=== PATIENT | female | born 1935 | race Two or more races ===

== ENCOUNTER 2019-08-15 11:27 | Inpatient (IN) | payer MEDICARE, OTHER ==
[~2019-08-15] VITALS: Ht 162.6 cm; Wt 68.7 kg
--- NOTE | 2019-08-15 11:41 | NUR ---
[facility] AA[facility], LETHARGIC - RESPONSIVE TO VERBAL STIMULI. NOT IN RESP DISTRESS, BREATHING EVEN AND UNLABORED. ERNESTINE IN FOR ALTERED MENTAL STATUS THAT NORMAL. PT REPORTS UPON ASSESSMENT THAT SHE FEELS BAD BECAUSE HER CHEST HURTS AND POINTED AT HER MID CHEST. PT REPORTS PAIN 8/10. PT STATES THAT PAIN IS ALREADY 4 HOURS. PT IS AFEBRILE. DENIES COUGH. PLACED ON MONITOR. MD WAS AT BEDSIDE FOR EVAL. ORDERS RECEIVED, NOTED AND CARRIED OUT.
--- NOTE | 2019-08-15 11:53 | NUR ---
BRENNA LEON (DAUGHTER) [phone].
[2019-08-15 12:10] LABS: BASOPHILS # (AUTO) 0.1 /CMM (0.0-0.2); BASOPHILS % (AUTO) 0.8 % (0.0-2.0); EOSINOPHILS % (AUTO) 2.6 % (0.0-6.0); HEMATOCRIT 36 % (33-45); HEMOGLOBIN 12.2 g/dL (11.5-14.8); LYMPHOCYTES # (AUTO) 1.6 /CMM (0.8-4.8); LYMPHOCYTES % (AUTO) 20.2 % (20.0-44.0); MEAN CORPUSCULAR HGB CONC 34 g/dl (31.0-36.0); MEAN CORPUSCULAR VOLUME 97 fL (82-100); MONOCYTES # (AUTO) 0.9 /CMM (0.1-1.30); MONOCYTES % (AUTO) 10.5 % (2.0-12.0); NEUTROPHILS # (AUTO) 5.4 /CMM (1.8-8.9); NEUTROPHILS % (AUTO) 65.9 % (43.0-81.0); PLATELET COUNT (AUTO) 266 /CMM (150-450); WHITE BLOOD COUNT (AUTO) 8.1 K/uL (4.3-11.0)
[2019-08-15 12:17] LABS: CALCIUM, SERUM 8.4 mg/dL (8.5-10.1); CARBON DIOXIDE 20 mmol/L (21-32); CHLORIDE 101 mmol/L (98-107); CREATININE 1.2 mg/dL (0.6-1.3); GLUCOSE 108 mg/dL (74-106); POTASSIUM 3.6 mmol/L (3.5-5.1); SODIUM SERUM 135 mmol/L (136-145); UREA NITROGEN, BLOOD 12 mg/dL (7-18)
--- NOTE | 2019-08-15 12:19 | NUR ---
IV LINE OBTAIEND ON L AC 20G, BLOOD DRAWN AND GIVEN TO RETAIL HELPER. URINE COLLECTED VIA IN AND OUT WITH STRICT STERILE TECHNIQUE. COVID SWAB DONE. PT WAS CLEAN, PT HAD BM.
[2019-08-15 12:23] LABS: APPEARANCE,URINE Clear (CLEAR); BILIRUBIN,URINE Negative (NEGATIVE); BLOOD, URINE Negative Ery/uL (NEGATIVE); COLOR,URINE Yellow (YELLOW); KETONES,URINE Negative (NEGATIVE); NITRITE, URINE Negative (NEGATIVE); PROTEIN,URINE Negative (NEGATIVE); UGLUCOSE Negative (NEGATIVE); UROBILINOGEN,URINE 0.2 EU/dL (0.2)
[2019-08-15 12:30] LABS: ALANINE AMINOTRANSFERASE 15 U/L (12-78); ALBUMIN 3.7 g/dL (3.4-5.0); ALKALINE PHOSPHATASE 51 U/L (46-116); ASPARTATE AMINOTRANSFERASE 12 U/L (15-37); B-TYPE NATRIURETIC PEPTIDE 179 PG/ML (0-125); BILIRUBIN,DIRECT 0.1 mg/dL (0.0-0.2); BILIRUBIN,TOTAL 0.4 mg/dL (0.2-1.0); TOTAL PROTEIN, SERUM 7.3 g/dL (6.4-8.2)
[2019-08-15 12:39] LABS: CREATINE KINASE, TOTAL 45 U/L (26-192); FERRITIN 91 ng/mL (8-388)
[2019-08-15 12:40] LABS: C-REACTIVE PROTEIN 1.4 mg/dL (0.0-0.9)
[2019-08-15 12:48] LABS: D-DIMER 0.38 mg/L(FEU (0.17-0.50)
[2019-08-15] MEDS ORDERED: ASPIRIN 325 MG TABLET ONE (12:59)
[2019-08-15] MEDS ORDERED: ASPIRIN 325 MG TABLET PO ONE (13:00)
[2019-08-15 13:01] LABS: LEUKOCYTE ESTERASE ,URINE NEGATIVE (NEGATIVE)
--- NOTE | 2019-08-15 13:13 | NUR ---
CALLED FOR TELE ISOLATION BED
--- NOTE | 2019-08-15 13:44 | NUR ---
NURSING SUP GAVE TELE BED 114-1.
[2019-08-15] MEDS ORDERED: HYDROCODONE/APAP 5/325MG 1 EACH TABLET PO PRN (14:00)
[2019-08-15] MEDS ORDERED: ONDANSETRON HCL/PF 4 MG/2 ML VIAL IVP PRN (14:00)
[2019-08-15] MEDS ORDERED: Z GUARD REMEDY 2 OZ OINT TP PRN (14:00)
[2019-08-15] MEDS ORDERED: MAGNESIUM HYDROXIDE 30 ML UDC PO PRN (14:00)
[2019-08-15] MEDS ORDERED: CEFTRIAXONE 1GM BAG (ER ONLY) 1 GM/50 ML PIGGYBACK IV ONE (14:00)
[2019-08-15] MEDS ORDERED: MAG HYDROX/AL HYDROX/SIMETH 30 ML UDC PO PRN (14:00)
--- NOTE | 2019-08-15 14:01 | NUR ---
REPORT GIVEN TO AZIZA RODRIGES FOR MARLON.
--- NOTE | 2019-08-15 14:18 | NUR ---
PT TRANSPORTED TO UNIT ON GURNEY WITH EMT AND RN AT BEDSIDE W/ ACLS PROTOCOL. NAD NOTE DURING TRANSPORT.
[2019-08-15 14:30] VITALS: BP 89/56
--- NOTE | 2019-08-15 14:30 | NUR ---
TELE/RN NOTE THE PATIENT IS RECEIVED MONIKA RICHEY FROM ER. THE PATIENT IS TRANSFERRED TO BED. PATIENT ALERT AND ORIENTED X1. ABLE TO MAKE NEEDS KNOWN VERBALLY. PATIENT IS ADMITTED FROM [facility] WITH DX OF ALOC. DENIES PAIN. AT THIS TIME. IN ROOM AIR AND DENIES SOB. RESPIRATION REGULAR AND UNLABORED. PATIENT IS IN N APPARENT DISTRESS. LAC G 20 PATENT AND SALINE LOCKED. EXTERNAL TELE BOX IS ATTACHED AND READING IS SR 63. PATIENT IS GIVEN INSTRUCTION AND ORIENTATION ABOUT THE ROOM/FLOOR. BED LOW AND LOCKED. SIDE RAILS UP X3. CALL LIGHT WITHIN REACH. WILL CONTINUE TO MONITOR.
[2019-08-15] MEDS: ENOXAPARIN SODIUM 40 MG/0.4 ML DISP.SYRIN SQ SCH (15:00)
[2019-08-15] MEDS: IV NS 0.9% 1,000 ML IV PRN (15:01)
[2019-08-15 15:20] VITALS: BP 104/57
--- NOTE | 2019-08-15 15:24 | NUR ---
TELE/RN NOTE STILL WAITING FOR PHARMACY TO SEND ROCEPHIN 1 GM DUE AT 1400. FOLLOW UP ISIDRA IS MADE. WILL CONTINUE TO FOLLOW UP UNTIL IT GETS DELIVERED.
--- NOTE | 2019-08-15 15:49 | NUR ---
TELE/RN NOTE RECEIVED CALL FROM BAILEY BARKER) STATING THAT ROCEPHIN 1 GM DUE AT 1400 WILL NOT BE SENT BECAUSE IT WAS ORDERED BY ER DOCTOR AND NOT BY ADMITTING DR CRAWFORD DESPITE THAT THE MEDICATION WAS NOT GIVEN IN THE ER. PAGED DR CRAWFORD TO FIND OUT IF HE STILL WANTS THE MEDICATION TO BE GIVEN. WAITING FOR REPLY.
--- NOTE | 2019-08-15 15:56 | NUR ---
TELE/RN NOTE RECEIVED ORDER FROM DR GUIDO FOR ROCEPHIN 1 G IV ONE TIME. NOTED AND CARRIED OUT.
--- NOTE | 2019-08-15 15:57 | NUR ---
TELE/RN NOTE ROCEPHIN 1 GM IV DUE AT 1400 WAS NOT GIVEN, HOWEVER, INSTEAD DR GUIDO GAVE A NEW ORDER FOR ROCEPHIN 1 G IV TO BE GIVEN AT 1700 (ONE TIME ORDER).
[2019-08-15] MEDS ORDERED: CEFTRIAXONE 1 G in IV D5W 50 ML IV ONE (17:00)
--- NOTE | 2019-08-15 18:31 | NUR ---
TELE/RN NOTE THE PATIENT IS ALERT AND ORIENTED X1. IN ROOM AIR AND SATURATION IS AT 98%. DENIES SOB. RESPIRATION REGULAR AND UNLABORED. DENIES PAIN. THE PATIENT IS IN NO APPARENT DISTRESS. EXTERNAL TELE BOX READING IS SR 78. LAC G 20 PATENT AND NS INFUSING AT 100ML/HR AND NO S/S INFILTRATION NOTED. BED LOW AND LOCKED. SIDE RAILS UP X3. CALL LIGHT WITHIN REACH. WILL ENDORSE TO HOSPITAL MORTICIAN.
[2019-08-15 20:00] VITALS: BP 138/73
[2019-08-16] VITALS: BP 119/65
[2019-08-16 04:00] VITALS: BP 118/71
[2019-08-16] MEDS: IV NS 0.9% 1,000 ML IV PRN ×2 (04:31→16:17)
[2019-08-16 06:15] LABS: BASOPHILS % (AUTO) 0.3 % (0.0-2.0); EOSINOPHILS % (AUTO) 2.3 % (0.0-6.0); HEMATOCRIT 34 % (33-45); HEMOGLOBIN 11.7 g/dL (11.5-14.8); LYMPHOCYTES # (AUTO) 1.8 /CMM (0.8-4.8); LYMPHOCYTES % (AUTO) 20.5 % (20.0-44.0); MEAN CORPUSCULAR HGB CONC 35 g/dl (31.0-36.0); MEAN CORPUSCULAR VOLUME 97 fL (82-100); MONOCYTES # (AUTO) 0.8 /CMM (0.1-1.30); MONOCYTES % (AUTO) 9.8 % (2.0-12.0); NEUTROPHILS # (AUTO) 5.8 /CMM (1.8-8.9); NEUTROPHILS % (AUTO) 67.1 % (43.0-81.0); PLATELET COUNT (AUTO) 270 /CMM (150-450); RED BLOOD CELL COUNT(AUTO) 3.52 MIL/uL (4.0-5.2); WHITE BLOOD COUNT (AUTO) 8.6 K/uL (4.3-11.0)
[2019-08-16 06:37] LABS: ALBUMIN 3.6 g/dL (3.4-5.0); BILIRUBIN,TOTAL 0.3 mg/dL (0.2-1.0); CALCIUM, SERUM 8.3 mg/dL (8.5-10.1); CREATININE 0.7 mg/dL (0.6-1.3); MAGNESIUM 1.3 mg/dL (1.8-2.4); PHOSPHORUS 2.9 mg/dL (2.5-4.9); POTASSIUM 3.4 mmol/L (3.5-5.1); TOTAL PROTEIN, SERUM 6.9 g/dL (6.4-8.2)
--- NOTE | 2019-08-16 07:37 | NUR ---
BORING MILL SET UP OPERATOR NOTES RECEIVED PATIENT IN BED, ASLEEP. AROUSABLE TO VERBAL AND TACTILE STIMULI. ON ROOM AIR WITH SPO2 OF 99%. NO SOB. DENIES ANY C/O PAIN NOR DISCOMFORT AT THIS TIME.LAC # 20 INTACT AND PATENT INFUSING NS @ 100ML/HR RAGHAV WELL. ON TELE MONITORING SR: 77. BED IN LOWEST POSITION, LOCKED. BED ALARM ON. CALL LIGHT WITHIN REACH.
[2019-08-16 08:00] VITALS: BP 140/68
[2019-08-16] MEDS ORDERED: POTASSIUM CHLORIDE 20 MEQ TAB.PRT.SR PO SCH (08:00)
[2019-08-16] MEDS: Magnesium 1GM/D5W 100ML PREMIX 100 ML IV SCH ×2 (08:18→09:37)
[2019-08-16] MEDS: ENOXAPARIN SODIUM 40 MG/0.4 ML DISP.SYRIN SQ SCH (08:19)
[2019-08-16] MEDS: ASPIRIN 81 MG TAB.CHEW PO SCH (08:19)
[2019-08-16 08:23] LABS: IRON, SERUM 53 ug/dl (50-175); TOTAL IRON BINDING CAPACITY 290 ug/dl (250-450)
--- NOTE | 2019-08-16 09:13 | NUR ---
WOUND CARE CONSULT: REVIEWED CHART, PHOTO DOCUMENTATION AND NURSING NOTES. PER PHOTO THERE ARE SURGICAL SCARS TO BILATERAL KNEES, PRESENT ON ADMISSION. RECOMMENDATIONS MADE FOR SKIN PROTECTION. DISCUSSED WITH NURSING STAFF. MD IN AGREEMENT WITH PLAN OF CARE. CURRENT NETO SCORE IS 15.
[2019-08-16 09:24] LABS: THYROID STIMULATING HORMONE 131.276 uIU/mL (0.358-3.74)
[2019-08-16] MEDS: LEVOTHYROXINE SODIUM 100 MCG TABLET PO SCH (11:02)
[2019-08-16 12:00] VITALS: BP 133/69
[2019-08-16 16:00] VITALS: BP 138/67
--- NOTE | 2019-08-16 18:42 | NUR ---
TRUCK ASSEMBLER NOTES PATIENT RESTING COMFORTABLY IN BED WATCHING TV. ALERT AND ORIENTED X2. VERBALLY RESPONSIVE. NO S/S OF RESPIRATORY DISTRESS. DENIES ANY C/O PAIN NOR DISCOMFORT AT THIS TIME. DENIES ANY C/O CHEST PAIN DURING THE SHIFT. NOTED INCREASE ALERTNESS SINCE RECEIVING PATIENT THIS AM. LAC # 20 INTACT AND PATENT INFUSING NS @ 100ML/HR RAGHAV WELL. BED IN LOWEST POSITION, LOCKED. BED ALARM ON. CALL LIGHT WITHIN REACH. IN NO APPARENT DISTRESS.
--- NOTE | 2019-08-16 19:30 | NUR ---
SPRAY GUN SIZER NOTES RECEIVED PATIENT IN BED ALERT AWAKE ORIENTED X4 RESTING COMFORTABLY. BREATHING NORMAL NO SOB NOTED. RESPIRATION EVEN NON LABORED. TEL;E MONITOR READING SR IN 60'S. DENIES ANY PAIN OR DISCOMFORT AT THIS TIME. IV SITE INTACT PATENT FLUSHED WELL. ABD SOFT AND NON DISTENDED. SAFETY MEASURES IN PLACE, BED IN LOW AND LOCKED POSITION. CALL LIGHT WITHIN REACH. WILL CONT TO MONITOR. Addendum: 08/16/19 at 8 by SANDY CARROLL RN ERROR IN CHARTING PATIENT IS ALERT AWAKE ORIENTED X2 NOT 4.
[2019-08-16 20:00] VITALS: BP 151/73
[2019-08-16] MEDS: ACETAMINOPHEN 325 MG TABLET PO PRN (20:13)
[2019-08-17] VITALS: BP_SYST 148; BP_SYST 162; BP_DIAS 70
[2019-08-17 04:00] VITALS: BP 158/79
[2019-08-17] MEDS: IV NS 0.9% 1,000 ML IV PRN (05:06)
--- NOTE | 2019-08-17 06:16 | NUR ---
FUNCTIONAL SUPPORT ANALYST NOTES PATIENT RESTED WELL THROUGHOUT THE SHIFT. NO S/S OF ACUTE DISTRESS NOTED. VITAL SIGNS REMAINED WNL. ROUTINE MEDICATIONS WERE GIVEN ALONG WITH PRN TYLENOL TOLERATED WELL. IV SITE INTACT PATENT FLUSHED WELL. ON RA SATURATING WELL IN 97%. TELE MONITOR READING SR. SKIN INTACT WARM AND DRY TO TOUCH. KEPT CLEAN AND COMFORTABLE. SAFETY MEASURES IN PLACE, BED IN LOW AND LOCKED POSITION. CALL LIGHT WITHIN REACH. WILL ENDORSE PATIENT TO AM NURSE FOR MARLON.
[2019-08-17 07:15] LABS: BASOPHILS % (AUTO) 0.4 % (0.0-2.0); EOSINOPHILS % (AUTO) 2.2 % (0.0-6.0); HEMATOCRIT 30 % (33-45); HEMOGLOBIN 10.5 g/dL (11.5-14.8); LYMPHOCYTES # (AUTO) 1.8 /CMM (0.8-4.8); LYMPHOCYTES % (AUTO) 24.2 % (20.0-44.0); MEAN CORPUSCULAR HGB CONC 35 g/dl (31.0-36.0); MEAN CORPUSCULAR VOLUME 97 fL (82-100); MONOCYTES # (AUTO) 0.8 /CMM (0.1-1.30); MONOCYTES % (AUTO) 10.8 % (2.0-12.0); NEUTROPHILS # (AUTO) 4.7 /CMM (1.8-8.9); NEUTROPHILS % (AUTO) 62.4 % (43.0-81.0); PLATELET COUNT (AUTO) 264 /CMM (150-450); RED BLOOD CELL COUNT(AUTO) 3.14 MIL/uL (4.0-5.2); WHITE BLOOD COUNT (AUTO) 7.5 K/uL (4.3-11.0)
[2019-08-17 07:16] LABS: ALANINE AMINOTRANSFERASE 15 U/L (12-78); ALBUMIN 3.3 g/dL (3.4-5.0); ALKALINE PHOSPHATASE 48 U/L (46-116); ASPARTATE AMINOTRANSFERASE 9 U/L (15-37); BILIRUBIN,TOTAL 0.2 mg/dL (0.2-1.0); CALCIUM, SERUM 8.2 mg/dL (8.5-10.1); CARBON DIOXIDE 22 mmol/L (21-32); CHLORIDE 107 mmol/L (98-107); CREATININE 0.7 mg/dL (0.6-1.3); GLUCOSE 115 mg/dL (74-106); MAGNESIUM 1.7 mg/dL (1.8-2.4); PHOSPHORUS 2.5 mg/dL (2.5-4.9); POTASSIUM 3.5 mmol/L (3.5-5.1); SODIUM SERUM 141 mmol/L (136-145); TOTAL PROTEIN, SERUM 6.5 g/dL (6.4-8.2); UREA NITROGEN, BLOOD 8 mg/dL (7-18)
[2019-08-17 07:18] LABS: CREATINE KINASE, TOTAL 36 U/L (26-192)
--- NOTE | 2019-08-17 07:30 | NUR ---
RN NOTE: RECEIVED PATIENT IN BED THIS MORNING. PATIENT IS ALERT AND ORIENTED X3, RESPONDS APPROPRIATELY, GREENLANDIC SPEAKING. SATING WELL ON ROOM AIR, NO SIGNS OF RESPIRATORY DISTRESS NOTED. NO SIGNS OF ACUTE DISTRESS NOTED. #20 LAC, C/D/I, FLUSHES WELL, NO SIGNS OF COMPLICATIONS NOTED. SAFETY MEASURES IMPLEMENTED, BED IN LOWEST POSITION, LOCKED, SIDE RAILS UP X2, CALL LIGHT WITHIN REACH. WILL CONTINUE TO MONITOR PATIENT FOR CHANGES.
[2019-08-17 08:00] VITALS: BP 151/58
[2019-08-17] MEDS ORDERED: METF-441 PO (08:18)
[2019-08-17] MEDS ORDERED: CALC500T52 PO (08:18)
[2019-08-17] MEDS ORDERED: AMLO5TAB4 PO (08:18)
[2019-08-17] MEDS ORDERED: MAGN400O6 PO (08:18)
[2019-08-17] MEDS ORDERED: CLOP75TA15 PO (08:18)
[2019-08-17] MEDS ORDERED: AMIN30LI2 PO (08:18)
[2019-08-17] MEDS ORDERED: ACET-868 PO (08:18)
[2019-08-17] MEDS ORDERED: MEGE400O4 PO (08:18)
[2019-08-17] MEDS ORDERED: LEVO75TA7 PO (08:18)
[2019-08-17] MEDS ORDERED: ALBU18HF2 IH (08:18)
[2019-08-17] MEDS ORDERED: CYAN100020 SL (08:18)
[2019-08-17] MEDS ORDERED: FLUT16SP16 NS (08:18)
[2019-08-17] MEDS ORDERED: CARV12.52 PO (08:18)
[2019-08-17] MEDS ORDERED: RISE35TA PO (08:18)
[2019-08-17] MEDS ORDERED: MULT-447 PO (08:18)
[2019-08-17] MEDS ORDERED: CHOL100040 PO (08:18)
[2019-08-17] MEDS ORDERED: TRAM50TA2 PO (08:18)
[2019-08-17] MEDS ORDERED: INSU100V39 SQ (08:18)
[2019-08-17] MEDS ORDERED: PANT40TA2 PO (08:18)
[2019-08-17] MEDS ORDERED: PRAV40TA3 PO (08:18)
[2019-08-17] MEDS ORDERED: FERR325T23 PO (08:18)
[2019-08-17] MEDS ORDERED: PYRI25TA3 PO (08:18)
[2019-08-17] MEDS ORDERED: DILT120C87 PO (08:18)
[2019-08-17] MEDS ORDERED: DOCU-141 PO (08:18)
[2019-08-17] MEDS ORDERED: MEMA1CAP3 PO (08:18)
[2019-08-17] MEDS ORDERED: GUAI5SYR PO (08:18)
[2019-08-17] MEDS: LEVOTHYROXINE SODIUM 100 MCG TABLET PO SCH (08:19)
[2019-08-17] MEDS: ENOXAPARIN SODIUM 40 MG/0.4 ML DISP.SYRIN SQ SCH (08:20)
[2019-08-17] MEDS: ASPIRIN 81 MG TAB.CHEW PO SCH (08:21)
[2019-08-17] MEDS: ACETAMINOPHEN 325 MG TABLET PO PRN (08:45)
--- NOTE | 2019-08-17 09:38 | NUR ---
PER DR. GANNON OK TO DISCONTINUE ISOLATION ,NURSING SUP NOTIFIED AWAITS CLEAN RM IN CLEAN UNIT.
--- NOTE | 2019-08-17 09:40 | NUR ---
INFECTION CONTROL LIONEL NOTIFIED.
--- NOTE | 2019-08-17 11:05 | NUR ---
GAVE REPORT TO AZIZA SEGAL FOR CONTINUITY OF CARE.
--- NOTE | 2019-08-17 11:24 | NUR ---
MS/line supervisor Patient received as transfer from [facility], room 114. A/O X2, vital signs on transfer stable, no fevers. Does not appear to be in any pain or distress at this time. No belongings with patient noted. Heplock to left AC 20g flushing well with normal saline. Bed in low setting, side rails X3 in upright position, brakes locked. Call light within reach, will continue to monitor and ensure safety.
[2019-08-17 11:28] VITALS: BP 139/56
[2019-08-17] MEDS: LIOTHYRONINE SODIUM (25 MCG) 25 MCG TABLET PO SCH (12:00)
[2019-08-17] MEDS: Magnesium 1GM/D5W 100ML PREMIX 100 ML IV SCH ×2 (12:06→12:52)
--- NOTE | 2019-08-17 13:10 | NUR ---
MS/RN Magnesium replacement Magnesium level 1.7, to be replaced with 2gm IVPB.
--- NOTE | 2019-08-17 15:25 | NUR ---
MS/RN 2D echo 2D echo completed at bedside.
[2019-08-17 16:00] VITALS: BP 141/62
--- NOTE | 2019-08-17 18:37 | NUR ---
MS/RN End note Patient remains in stable condition, no new needs at this time. Will endorse to histology assistant.
[2019-08-17 20:00] VITALS: BP 135/64
--- NOTE | 2019-08-17 22:53 | NUR ---
MS/TELE/RN ON INITIAL ROUND AT 1930, PATIENT WAS ON BED AWAKE, ALERT, ORIENTED, COMFORTABLE, NO C/O PAIN, NO DISTRESS NOTED, CALL LIGHT IN REACH. FALL PRECAUTION PER PROTOCOL, WILL MONITOR.
[2019-08-18 06:06] LABS: PTH, INTACT 28 pg/mL (15-65)
--- NOTE | 2019-08-18 06:06 | NUR ---
MS/TELE/RN PATIENT IS STILL SLEEPING AT THIS TIME, APPEAR COMFORTABLE, NO SIGNS OF DISTRESS NOTED, CALL LIGHT IN REACH. ALL NEEDS ATTENDED AT THIS TIME. WILL CONTINUE TO MONITOR.
--- NOTE | 2019-08-18 07:39 | NUR ---
MS/RN Opening note Patient received from table games shift manager. A/O X3, vital signs stable, denies any pain at this time. Heplock to left AC flushing well with normal saline, no signs of infiltration see. Time allowed for all questions and concerns to be addressed, Anel LIZ) acting as ward clerk. Safety measures in place, bed in low setting, side rails X3 in upright position, call light within reach. Will continue to monitor and ensure safety
[2019-08-18 07:43] LABS: BASOPHILS # (AUTO) 0.1 /CMM (0.0-0.2); BASOPHILS % (AUTO) 0.7 % (0.0-2.0); EOSINOPHILS % (AUTO) 2.4 % (0.0-6.0); HEMATOCRIT 33 % (33-45); HEMOGLOBIN 11.4 g/dL (11.5-14.8); LYMPHOCYTES # (AUTO) 1.9 /CMM (0.8-4.8); LYMPHOCYTES % (AUTO) 24.9 % (20.0-44.0); MEAN CORPUSCULAR HGB CONC 34 g/dl (31.0-36.0); MEAN CORPUSCULAR VOLUME 97 fL (82-100); MONOCYTES # (AUTO) 0.7 /CMM (0.1-1.30); MONOCYTES % (AUTO) 9.1 % (2.0-12.0); NEUTROPHILS # (AUTO) 4.7 /CMM (1.8-8.9); NEUTROPHILS % (AUTO) 62.9 % (43.0-81.0); PLATELET COUNT (AUTO) 295 /CMM (150-450); RED BLOOD CELL COUNT(AUTO) 3.44 MIL/uL (4.0-5.2); WHITE BLOOD COUNT (AUTO) 7.5 K/uL (4.3-11.0)
[2019-08-18 08:00] VITALS: BP 137/75
[2019-08-18 08:10] LABS: ALBUMIN 3.5 g/dL (3.4-5.0); BILIRUBIN,TOTAL 0.2 mg/dL (0.2-1.0); CALCIUM, SERUM 8.5 mg/dL (8.5-10.1); CREATININE 0.6 mg/dL (0.6-1.3); MAGNESIUM 1.9 mg/dL (1.8-2.4); PHOSPHORUS 2.7 mg/dL (2.5-4.9); POTASSIUM 3.5 mmol/L (3.5-5.1); TOTAL PROTEIN, SERUM 6.9 g/dL (6.4-8.2)
[2019-08-18] MEDS: ENOXAPARIN SODIUM 40 MG/0.4 ML DISP.SYRIN SQ SCH (08:15)
[2019-08-18] MEDS: LEVOTHYROXINE SODIUM 100 MCG TABLET PO SCH (08:15)
[2019-08-18] MEDS: ASPIRIN 81 MG TAB.CHEW PO SCH (08:15)
[2019-08-18] MEDS: LIOTHYRONINE SODIUM (25 MCG) 25 MCG TABLET PO SCH (08:17)
--- NOTE | 2019-08-18 09:00 | NUR ---
MS/RN Medications Morning medications administered as ordered, no difficulty swallowing.
[2019-08-18 09:10] LABS: *SPE A/G RATIO 1.2 (0.7-1.7); *SPE ALBUMIN 3.2 g/dL (2.9-4.4); *SPE ALPHA-1-GLOBULIN 0.2 g/dL (0.0-0.4); *SPE BETA GLOBULIN 0.9 g/dL (0.7-1.3); *SPE GLOBULIN, TOTAL 2.6 g/dL (2.2-3.9); *SPE M-SPIKE Not Observed g/dL (Not Observed); *SPEGAMMA GLOBULIN 0.5 g/dL (0.4-1.8)
[2019-08-18] MEDS ORDERED: LEVO150T8 PO (13:14)
[2019-08-18] MEDS ORDERED: LIOT25TA7 PO (13:14)
--- NOTE | 2019-08-18 13:23 | NUR ---
MS/RN S/B Dr Matthews Seen by Dr Matthews - patient to be discharged back to facility today.
--- NOTE | 2019-08-18 13:34 | NUR ---
MS/seo intern papers Chart copied, exit care prepared ready for discharge later today.
[2019-08-18 13:40] LABS: THYROID STIMULATING HORMONE 177.376 uIU/mL (0.358-3.74)
[2019-08-18] MEDS ORDERED: POTASSIUM CHLORIDE 20 MEQ TAB.PRT.SR PO SCH (14:00)
--- NOTE | 2019-08-18 15:40 | NUR ---
MS/gang mower operator Call received from daughter stating that they would prefer the patient to be discharged to home rather than back to SNF. design engineering manager made aware and spoke with daughter. Patient now for discharge to home. Paramedics at bedside to transfer patient back to home, morenita Long will be waiting at home ready to receive the patient. All personal belongings with patient and signed for on belongings list. Heplock and name bands removed. Paramedics given copies of medical record and exit care. Verified correct address.
== END 2019-08-18 15:25 | disposition home health service (06) | DRG 302 ==
LOC: ER 11:28 → TELE1 13:58 → MEDSG1 08-17 07:15 → MED 08-17 11:05
PROVIDERS: ADMIT Internal Medicine; ATTEND Nurse Practitioner Acute Care
DX: I25.10 Atherosclerotic heart disease of native coronary artery without angina pectoris (principal); G93.41 Metabolic encephalopathy; N17.0 Acute kidney failure with tubular necrosis; E87.1 Hypo-osmolality and hyponatremia; D68.69 Other thrombophilia; E87.2 Acidosis; F03.90 Unspecified dementia, unspecified severity, without behavioral disturbance, psychotic disturbance, mood disturbance, and anxiety; E11.9 Type 2 diabetes mellitus without complications; J44.9 Chronic obstructive pulmonary disease, unspecified; E86.1 Hypovolemia; E03.9 Hypothyroidism, unspecified; E87.6 Hypokalemia; E83.42 Hypomagnesemia; R26.9 Unspecified abnormalities of gait and mobility; D64.9 Anemia, unspecified; T38.3X5A Adverse effect of insulin and oral hypoglycemic [antidiabetic] drugs, initial encounter; Y92.89 Other specified places as the place of occurrence of the external cause
CPT/HCPCS: 36415; 71045-TC; 80048-TC; 80053-TC; 80076-TC; 81000-TC; 82550-TC; 82728-TC; 82962-TC; 83540-TC; 83605-TC; 83615-TC; 83735-TC; 83880; 83970; 84100-TC; 84155; 84165; 84439-TC; 84443-TC; 84484-TC; 85025-TC; 85378-TC; 85385-TC; 85730-TC; 86140-TC; 87040-TC; 87081-TC; 93307-TC; G0378; J0696; J1650; J3475; J7030; J7060